=== PATIENT | female | born 1940 | race Caucasian/White ===

== ENCOUNTER → 2016-10-05 | Outpatient (CLI) | payer MEDICARE ==
--- NOTE | 2016-10-05 14:35 | KCIC ---
Bilateral digital screening mammograms with CAD: HISTORY Routine screening. COMPARISON Comparison is made to previous studies dated 10/04/2015 and 09/26/2014. FINDINGS Breast density category B. The skin and nipples show no abnormalities. No abnormal lymph nodes are seen in the axilla. The breast parenchyma shows scattered fibroglandular density. There are small nodules consistent with intramammary lymph nodes in the right breast. There are no other dominant masses, suspicious calcifications or architectural distortions. IMPRESSION No evidence of malignancy. Recommend routine annual mammographic screening. This study was interpreted with the benefit of Computerized Aided Detection (CAD). Mammography is not 100% sensitive in detecting breast cancer. Therefore, a self breast exam and a clinical breast exam are very important. A negative mammogram does not negate a clinically suspicious finding and should not result in a delay in biopsying a clinically suspicious abnormality. BI-RADS category 2: Benign. This patient's information has been entered into a reminder system for the patient to be notified with the results of this examination and a target date for her next mammograms. Electronically signed by: Babs Whitney MD (Oct 05, 2016 14:33:32)
== END | disposition home or self-care (01) ==
LOC: KCIC MAMMO 10:29
PROVIDERS: ATTEND Obstetrics & Gynecology
DX: Z12.31 Encounter for screening mammogram for malignant neoplasm of breast (principal)
CPT/HCPCS: G0202; 77067

== ENCOUNTER → 2016-10-23 | Outpatient (CLI) | payer MEDICARE ==
--- NOTE | 2016-10-23 16:15 | KCIC ---
EXAM: Bone densitometry. HISTORY: Postmenopausal female presents for osteoporosis screening. FINDINGS: BMD: (g/cm2) - AP Spine Total (L1-L4): 0.903 - Total left Hip: 0.740 T-Score: - AP Spine Total (L1-L4): -1.3 - Total left Hip: -1.7 Z-Score: - AP Spine Total (L1-L4): 1.1 - Total left Hip: 0.1 There has been a 0.9 percent decrease in bone mineral density of the left hip and 1.3 percent decrease in bone mineral density of the lumbar spine compared to a prior study dated 10/09/2014. World Health Organization criteria for BMD interpretation classify patients as Normal (T-score at or above -1.0), Osteopenic (T-score between -1.0 and -2.5), or Osteoporotic (T-score at or below -2.5). IMPRESSION: Osteopenia. Electronically signed by: Guerline Santiago (Oct 23, 2016 16:14:16)
== END | disposition home or self-care (01) ==
LOC: KCIC DEXA 15:28
PROVIDERS: ATTEND Obstetrics & Gynecology
DX: Z78.0 Asymptomatic menopausal state (principal); M85.88 Other specified disorders of bone density and structure, other site
CPT/HCPCS: 77080

== ENCOUNTER 2016-10-29 15:03 | Emergency (ER) | payer MEDICARE ==
[~2016-10-29] VITALS: Ht 162.6 cm; Wt 68.0 kg
[2016-10-29 15:25] VITALS: BP 129/62
--- NOTE | 2016-10-29 15:29 | PHYS DOC ---
Adult General Chief Complaint Chief Complaint: MECHANICAL FALL HPI HPI Patient is a 76 year old female who presents with facial trauma. She was walking and tripped on the driveway and fell forward. She states only thing that hurts is her nose. She denies any back pain neck pain, hand, wrist, knee or foot pain. Patient does have blood coming from her right Stanley. Her last tetanus shot was in 2012. She is on aspirin but no other blood thinners. Review of Systems Review of Systems Constitutional: Denies fever or chills [] Eyes: Denies change in visual acuity, redness, or eye pain [] HENT: Denies nasal congestion or sore throat [] Respiratory: Denies cough or shortness of breath [] Cardiovascular: No additional information not addressed in HPI [] GI: Denies abdominal pain, nausea, vomiting, bloody stools or diarrhea [] : Denies dysuria or hematuria [] Musculoskeletal: Denies back pain or joint pain [] Integument: Denies rash or skin lesions [] Neurologic: Denies headache, focal weakness or sensory changes [] Endocrine: Denies polyuria or polydipsia [] Current Medications Current Medications Current Medications Medications (Trade) Dose Ordered Sig/Almita Start Time Stop Time Status Last Admin Dose Admin Oxymetazoline HCl (Afrin) 2 spray 1X ONCE 10/29/16 15:30 10/29/16 15:32 DC 10/29/16 16:15 2 SPRAY Allergies Allergies Allergies Coded Allergies Type Severity Reaction Last Updated Verified ciprofloxacin Allergy Intermediate Rash 10/29/16 Yes Physical Exam Physical Exam Constitutional: Well developed, well nourished, no acute distress, non-toxic appearance. [] HENT: Normocephalic, atraumatic, bilateral external ears normal, oropharynx moist, no oral exudates, patient to see. Nose, swelling of the right naris, no septal hematoma appreciated however is very difficult to evaluate. Eyes: PERRLA, EOMI, conjunctiva normal, no discharge. [] Neck: Normal range of motion, no tenderness, supple, no stridor. [] Cardiovascular:Heart rate regular rhythm, no murmur [] Lungs & Thorax: Bilateral breath sounds clear to auscultation [] Abdomen: Bowel sounds normal, soft, no tenderness, no masses, no pulsatile masses. [] Skin: Warm, dry, no erythema, no rash. [] Back: No tenderness, no CVA tenderness. [] Extremities: No tenderness, no cyanosis, no clubbing, ROM intact, no edema. [] Neurologic: Alert and oriented X 3, normal motor function, normal sensory function, no focal deficits noted. [] Psychologic: Affect normal, judgement normal, mood normal. [] Current Patient Data Vital Signs Vital Signs Date Time Temp Pulse Resp B/P (MAP) Pulse Ox O2 Delivery O2 Flow Rate FiO2 10/29/16 15:25 97.5 86 18 129/62 (84) 96 Room Air 97.5 EKG EKG [] Radiology/Procedures Radiology/Procedures [address] [address] IMAGING REPORT Signed PATIENT: YOLANDE HALL ACCOUNT: [id number] : 1940 LOCATION: ER AGE: 76 SEX: F EXAM STATUS: REG ER ORD. PHYSICIAN: HARPREET WATT MD REASON: trauma PROCEDURE: CT CERVICAL SPINE WO CONTRAST Indication injury,2 pain. 4 axial images of the cervical spine were obtained and reformatted in the coronal and sagittal planes. The lung apices appear clear. A significant soft tissue finding in the neck is not seen. Review of axial images demonstrates some degenerative change. Facet arthropathy is seen at several levels. A fracture is not apparent. Review of the reformatted images in the coronal and sagittal planes confirms spondylitic changes. No acute finding is seen. 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 No acute finding seen PQRS Compliance Statement: One or more of the following individualized dose reduction techniques were utilized for this examination: 1. Automated exposure control 2. Adjustment of the mA and/or kV according to patient size 3. Use of iterative reconstruction technique DICTATED and SIGNED BY: PRINCE TEE MD DATE: 10/29/16 1612 CC: HARPREET WATT MD; CAROLYN CUNHA MD ~ [facility] [address] [place], [place] [id number] IMAGING REPORT Signed PATIENT: YOLANDE HALL ACCOUNT: [id number] : 1940 LOCATION: ER AGE: 76 SEX: F EXAM STATUS: REG ER ORD. PHYSICIAN: HARPREET WATT MD REASON: trauma PROCEDURE: CT HEAD AND MAXILLOFACIAL WO Indication fall. Head and facial injury. The head and maxillofacial structures were evaluated. No prior CT imaging of the head is available. Images of the cervical spine were reformatted in the coronal and sagittal planes. CT head: Findings. The calvarium appears unremarkable. The ventricles and sulci are normal given the patient's age. There is no subdural or epidural hematoma. There is no hemorrhage or mass. An acute finding is not apparent. Maxillofacial CT: Findings. A significant soft tissue finding is not seen. There is fluid in the right maxillary sinus. The mandible appears unremarkable. The zygomatic arches appear normal. The nose and maxillary sinuses appear normal. The medial and lateral ferrell of the orbits appear normal. No facial fracture is seen. IMPRESSION: No facial fracture seen. No acute intracranial finding seen There is some fluid in the right maxillary sinus suggesting possible sinusitis. PQRS Compliance Statement: One or more of the following individualized dose reduction techniques were utilized for this examination: 1. Automated exposure control 2. Adjustment of the mA and/or kV according to patient size 3. Use of iterative reconstruction technique DICTATED and SIGNED BY: PRINCE TEE MD DATE: 10/29/161602 CC: HARPREET WATT MD; CAROLYN CUNHA MD ~ Impressions: Nasal contusion Course & Med Decision Making Course & Med Decision Making Pertinent Labs and Imaging studies reviewed. (See chart for details) CT scans face neck and head did not show any acute fractures or abnormalities. She does have an abrasion on her nose and swelling across the bridge of her nose. She was given Afrin to use she is also instructed to use ice and she can use Aleve 2 tablets every 12 hours she drinks a few extra glasses of water daily she is instructed not to do this morning and 3-4 days in a row. She is instructed to follow-up with primary care physician within a week, return ER for bleeding, increasing pain or other concerns. She can follow-up with Dr. Giraldo in the next 3-4 days. I gave her contact information. She is in stable condition being discharged this time. Dragon Disclaimer Dragon Disclaimer This electronic medical record was generated, in whole or in part, using a voice recognition dictation system. Departure Departure Impression: Primary Impression: Nasal contusion Disposition: 01 HOME, SELF-CARE Condition: STABLE Referrals: CAROLYN CUNHA MD (PCP) Patient Instructions: Facial or Scalp Contusion Additional Instructions: Can follow-up with Dr. Giraldo is an ears nose and throat physician can call her office in follow-up with her in the next 4-5 days. [facility] [address] [facility], [address] [facility] [address] Hearing Center: [phone] [address] [facility], [address] [facility] [address] Hearing Center: [phone] [address] [facility] [address] Fax: Hearing Center: [phone] [place] [address], [address] [place] [address] Hearing Center: [phone] [address] [facility], [address] [facility] [address] Hearing Center: [phone] If you have worsening pain, fevers, bleeding from your nose or other concerns please return back to emergency department. You can take Aleve 2 tablets every 12 hours for next 3-4 days for pain. You can also take Tylenol. Be sure drink a few extra glass of water everyday while taking this higher dose Aleve. HARPREET WATT MD October 29, 2016 15:29
[2016-10-29] MEDS ORDERED: OXYMETAZOLINE 0.05% NASAL SPRAY 30ML BOTTLE. NS ONE (15:30)
--- NOTE | 2016-10-29 16:13 | RAD ---
Indication fall. Head and facial injury. The head and maxillofacial structures were evaluated. No prior CT imaging of the head is available. Images of the cervical spine were reformatted in the coronal and sagittal planes. CT head: Findings. The calvarium appears unremarkable. The ventricles and sulci are normal given the patient's age. There is no subdural or epidural hematoma. There is no hemorrhage or mass. An acute finding is not apparent. Maxillofacial CT: Findings. A significant soft tissue finding is not seen. There is fluid in the right maxillary sinus. The mandible appears unremarkable. The zygomatic arches appear normal. The nose and maxillary sinuses appear normal. The medial and lateral ferrell of the orbits appear normal. No facial fracture is seen. IMPRESSION: No facial fracture seen. No acute intracranial finding seen There is some fluid in the right maxillary sinus suggesting possible sinusitis. PQRS Compliance Statement: One or more of the following individualized dose reduction techniques were utilized for this examination: 1. Automated exposure control 2. Adjustment of the mA and/or kV according to patient size 3. Use of iterative reconstruction technique
--- NOTE | 2016-10-29 16:19 | RAD ---
Indication injury,2 pain. 4 axial images of the cervical spine were obtained and reformatted in the coronal and sagittal planes. The lung apices appear clear. A significant soft tissue finding in the neck is not seen. Review of axial images demonstrates some degenerative change. Facet arthropathy is seen at several levels. A fracture is not apparent. Review of the reformatted images in the coronal and sagittal planes confirms spondylitic changes. No acute finding is seen. 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 No acute finding seen PQRS Compliance Statement: One or more of the following individualized dose reduction techniques were utilized for this examination: 1. Automated exposure control 2. Adjustment of the mA and/or kV according to patient size 3. Use of iterative reconstruction technique
== END 2016-10-29 16:52 | disposition home or self-care (01) ==
LOC: ER 15:03
DX: S00.33XA Contusion of nose, initial encounter (principal); Z88.1 Allergy status to other antibiotic agents; W22.8XXA Striking against or struck by other objects, initial encounter; Y93.89 Activity, other specified; Y92.89 Other specified places as the place of occurrence of the external cause; Y99.8 Other external cause status
CPT/HCPCS: 70450; 70486; 72125; 99284-25

== ENCOUNTER → 2017-10-07 | Outpatient (CLI) | payer MEDICARE | END | disposition home or self-care (01) | LOC: KCIC MAMMO 10:02 | DX: Z12.31 Encounter for screening mammogram for malignant neoplasm of breast (principal) | CPT/HCPCS: 77063; 77067 ==

== ENCOUNTER → 2018-10-11 | Outpatient (CLI) | payer MEDICARE ==
--- NOTE | 2018-10-11 14:12 | KCIC ---
BILATERAL SCREENING MAMMOGRAM, 3-D History: Routine screening. Comparison: Bilateral mammogram 10/07/2017 and dating back to 2014. Technique: MLO and CC digital tomosynthesis (3D) images obtained. Radiologist reviewed these images on dedicated workstation. Findings: Breast Tissue Density B : There are scattered areas of fibroglandular density. Stable intramammary lymph nodes in the posterior upper outer right breast and the posterior upper left breast. There are no dominant masses, suspicious microcalcifications, or architectural distortion. IMPRESSION: No mammographic evidence of malignancy. Recommend routine screening. BI-RADS category 2: Benign findings. The images were reviewed with computer-aided detection. Patient information is entered into reminder system with a target due date for the next screening mammogram. Mammography is the most sensitive method for finding small breast cancers, but it does not detect them all and is not a substitute for careful clinical examination. A negative mammogram does not negate a clinically suspicious finding and should not result in delay in biopsying a clinically suspicious abnormality. "Our facility is accredited by the [employer] Mammography Program." Electronically signed by: Emile Fuentes MD (10/11/2018 2:09 PM) [id number]
== END | disposition home or self-care (01) ==
LOC: KCIC MAMMO 08:23
PROVIDERS: ATTEND Obstetrics & Gynecology
DX: Z12.31 Encounter for screening mammogram for malignant neoplasm of breast (principal); N63.11 Unspecified lump in the right breast, upper outer quadrant; N63.20 Unspecified lump in the left breast, unspecified quadrant
CPT/HCPCS: 77063; 77067

== ENCOUNTER → 2019-12-04 | Outpatient (CLI) | payer MEDICARE ==
--- NOTE | 2019-12-04 18:00 | KCIC ---
Bilateral digital screening mammograms with 3-D tomosynthesis: Reason for examination: Routine screening. Comparison is made to previous studies dated back to 10/04/2015. Bilateral mammograms in CC and oblique projections were obtained with 2-D imaging and 3-D tomosynthesis imaging on a Siemens Inspiration unit and reviewed on the workstation. Interpretation was made with the benefit of CAD. The skin and nipples show no abnormalities. No abnormal axillary lymph nodes are seen. The breast parenchyma shows scattered fatty and fibroglandular density. (Breast density: Category B.) There are intramammary lymph nodes seen on the right. There also continues to be small nodule anterior laterally in the right breast which is stable. There are no new dominant masses, suspicious calcifications or architectural distortion. Impression: No evidence of malignancy. Recommend routine screening. BI-RAD Category 2: Benign. "Our facility is accredited by the [employer] Mammography Program." This patient's information has been entered into a reminder system for the patient to be notified with the results of her examination and a target date for the next mammogram. Electronically signed by: Mulu Whitney MD (12/04/2019 5:57 PM) [email or web address]
== END | disposition home or self-care (01) ==
LOC: KCIC MAMMO 12:38
PROVIDERS: ATTEND Family Medicine
DX: Z12.31 Encounter for screening mammogram for malignant neoplasm of breast (principal); N64.89 Other specified disorders of breast
CPT/HCPCS: 77063; 77067

== ENCOUNTER 2019-12-28 21:52 | Emergency (ER) | payer MEDICARE ==
[~2019-12-28] VITALS: Ht 160 cm; Wt 72.1 kg
[2019-12-29] MEDS ORDERED: NEOMY/BACITR/POLYMYXIN OINT PACKET. TP ONE (01:00)
[2019-12-29] MEDS ORDERED: BUPIVACAINE MPF 0.5% 30 ML VIAL. INJ ONE (01:00)
--- NOTE | 2019-12-29 01:08 | PHYS DOC ---
Past Medical History Past Medical History: High Cholesterol, Hypothyroid Past Surgical History: Hysterectomy, Tonsillectomy, Other Additional Past Surgical Histo: ectopic , breast biopsy, thyroidectomy, D&C, cataract, cosmetic sx Smoking Status: Never Smoker Alcohol Use: Occasionally Drug Use: None General Adult EDM: Chief Complaint: ABRASION HPI: HPI: 79-year-old female past medical history significant for hyperlipidemia and hypothyroidism presents to the ED with complaints of laceration to her right rosenberg after she fell off of 2 steps ("gardening wall") into plants and mulch. Was attempting to get a family members' attention at a [employer]. Does report h itting the mulch with her face, no LOC. Patient reports this was a complete accident when she lost her footing. Tetanus was updated in 2012. Is allergic to ciprofloxacin. Review of systems: No associated fever, chills, dizziness, cough, sore throat, nausea, vomiting, headache, neck stiffness/midline neck pain, chest pain or pressure, hemoptysis, leg swelling, rash, deformity, blurry vision, facial bone ttp, neurologic deficits. Heart Score: Risk Scores: NEXUS criteria negative Current Medications: Current Medications Medications (Trade) Dose Ordered Sig/Almita Start Time Stop Time Status Last Admin Dose Admin Bupivacaine HCl (Sensorcaine Mpf 0.5%) 20 ml 1X ONCE 12/29/19 01:00 12/29/19 01:01 DC 12/29/19 00:19 20 ML Neomycin/ Polymyxin/ Bacitracin (Triple Antibiotic Ointment) 1 pkt 1X ONCE 12/29/19 01:00 12/29/19 01:01 DC 12/29/19 01:00 1 PKT Allergies: Allergies: Allergies Coded Allergies Type Severity Reaction Last Updated Verified ciprofloxacin Allergy Intermediate Rash 10/29/16 Yes Physical Exam: PE: Constitutional: Well developed-looks much younger than 79yoa, well nourished, no acute distress, non-toxic appearance. [] HENT: superficial abrasions over left upper forehead, left cheek, no jaw pain or malalignment, no septal hematoma, (dirt on face), bilateral external ears normal, oropharynx moist, no oral exudates, nose normal. [] Eyes: PERRLA, EOMI, conjunctiva normal, no discharge. [] Neck: Normal range of motion, no tenderness, supple, no stridor. [] Cardiovascular:Heart rate regular rhythm, no murmur [] Lungs & Thorax: Bilateral breath sounds clear to auscultation [] Abdomen: Bowel sounds normal, soft, no tenderness, no masses, no pulsatile masses. [] Skin: Warm, dry, no erythema, no rash. [] Back: No tenderness, no CVA tenderness. [] Extremities: No tenderness, no cyanosis, no clubbing, ROM intact, no edema. [] 5cm upside-down V-shaped laceration/skin flap over mid right chin, white fascia exposed underneath Neurologic: Alert and oriented X 3, normal motor function, normal sensory function, no focal deficits noted. [] Psychologic: Affect normal, judgement normal, mood normal. [] Current Patient Data: Vital Signs: Vital Signs Date Time Temp Pulse Resp B/P (MAP) Pulse Ox O2 Delivery O2 Flow Rate FiO2 12/28/19 22:27 98.7 88 14 98 Room Air 98.7 EKG: EKG: [] Radiology/Procedures: Radiology/Procedures: Indication: right anterior rosenberg Procedure: The patient was placed in the appropriate position and anesthesia around the right anterior rosenberg with 0.5% bupivacaine. The area was then copiously irrigated with saline. The laceration was closed with 4-0 Prolene, total of 7 sutures. The wound area was then dressed with triple antibiotic ointment and sterile dressings. Total repaired wound length: 5cm. The patient tolerated the procedure . Complications: Wound flap with some dark blue skin coloration, will likely off although was closed to prevent infection.[] Impression: Accidental fall with facial abrasions and right rosenberg laceration status post repair. Wound care instructions given. Life-threatening processes considered including intracranial hemorrhage versus unstable cervical spine fracture, low suspicion given history and physical exam. Patient on no anticoagulants. Is clinically sober with medical decision-making capacity. Strict ED return precautions given for headache, neck pain, neurologic deficits or infection. Encourage PMD follow-up. All patient's questions were answered and she was stable at time of discharge. Course & Med Decision Making: Course & Med Decision Making Pertinent Labs and Imaging studies reviewed. (See chart for details) [] Dragon Disclaimer: Dragon Disclaimer: This electronic medical record was generated, in whole or in part, using a voice recognition dictation system. Departure Departure Impression: Primary Impression: Laceration of right lower extremity Additional Impression: Abrasion of face Disposition: 01 HOME, SELF-CARE Condition: STABLE Referrals: CAROLYN CUNHA MD (PCP) Patient Instructions: Laceration Care, Adult Additional Instructions: EMERGENCY DEPARTMENT GENERAL DISCHARGE INSTRUCTIONS Thank you for coming to [facility] Emergency Department (ED) today and trusting us with you care. We trust that you had a positivie experience in our Emergency Department. If you wish to speak to the department management, you may call the sirector at [phone]. YOUR FOLLOW UP INSTRUCTIONS ARE FOLLOWS: 1. Do you have a private Doctor? If you do not have a private doctir, please ask for a resource list of physicians or clinics that may be able to assist you with follow up care. 2. The Emergency Physicain has interpreted your x-rays. The X-Ray specialist will also review them. If there is a change in the findingd, you will be notified in 48 hours when at all possible. 3. A lab test or culture has been done, your results will be reviewed and you will be notified if you need a change in treatment. ADDITIONAL INSTRUCTIONS AND INFORMATION: 1. Your care today has been supervised by a physician who is specially trained in emergency care. Many problems require more than one evaluation for a complete diagnosis and treatment. We recommend that you schedule your follow up appointment as recommended to ensure complete treatment of you illness or injury. If you are unable to obtain follow up care and continue to have a problem, or if your consition worsens, we recommend that you return to the ED. 2. We are not able to safelymdetermine your condition over the phone nor are we able to give sound medical advice over the phone. For these safety reasons, if you call for medical advice we will ask you to come to the ED for further evaluation. 3. If you have any questions regarding these discharge instructions please call the ED at [phone]. SAFETY INFORMATION: In the interest of safety, wellness, and injury prevention; we encourage you to wear your sealbelt, if you smoke; quite smoking, and we encourage family to use a protective helmet for bicycling and other sporting events that present an increased risk for head injusry. IF YOUR SYMPTOMS WORSEN OR NEW SYMPTOMS DEVELOP, OR YOU HAVE CONCERNS ABOUT YOUR CONDITION; OR IF YOUR CONDITION WORSENS WHILE YOU ARE WAITING FOR YOUR FOLLOW UP APPOINTMENT; EITHER CONTACT YOUR PRIMARY CARE DOCTOR, THE PHYSICIAN WHOSE NAME AND NUMBER YOU WERE GIVEN, OR RETURN TO THE ED IMMEDIATELY. Justicifation of Admission Dx: Justifications for Admission: Justification of Admission Dx: N/A SURAJ TAYLOR DO Dec 29, 2019 01:08
== END 2019-12-29 01:15 | disposition home or self-care (01) ==
LOC: ER 21:52
DX: S81.811A Laceration without foreign body, right lower leg, initial encounter (principal); E78.00 Pure hypercholesterolemia, unspecified; E03.9 Hypothyroidism, unspecified; Z88.1 Allergy status to other antibiotic agents; W10.8XXA Fall (on) (from) other stairs and steps, initial encounter; Y93.89 Activity, other specified; Y92.89 Other specified places as the place of occurrence of the external cause; Y99.8 Other external cause status
CPT/HCPCS: 12002; 99282; J3490

== ENCOUNTER → 2020-12-03 | Outpatient (CLI) | payer MEDICARE ==
--- NOTE | 2020-12-03 15:27 | KCIC ---
Bilateral digital screening mammograms with 3-D tomosynthesis: Reason for examination: Routine screening. Comparison is made to previous studies dated back to 09/26/2014. Bilateral mammograms in CC and oblique projections were obtained with 2-D imaging and 3-D tomosynthes is imaging on a Siemens Inspiration unit and reviewed on the workstation. Interpretation was made wit h the benefit of CAD. The skin and nipples show no abnormalities. No abnormal axillary lymph nodes are seen. The breast par enchyma shows scattered fatty and fibroglandular density. (Breast density: Category B.) There appears to be new nodular asymmetry at the 11:30 B position of the right breast approximately 4 cm posterior to the nipple measuring approximately 1 cm in greatest dimension. There are no associated calcificat ions. There also is a small nodular density at approximately the 8:00 B position of the left breast 4 cm from the nipple measuring 4.3 mm in size. Further evaluation with ultrasound is recommended. Ther e are no other dominant masses, suspicious calcifications or architectural distortion. Impression: 1 cm nodular density in the right breast at the 11:30 B position 4 cm posterior to the nipple. 4.3 mm nodular density at approximately the 8:30 B position of the left breast 4 cm from the nipple. Recommend further evaluation with bilateral breast ultrasound. BI-RADS Category 0: Incomplete. Needs additional imaging evaluation. "Our facility is accredited by the [employer] Mammography Program." This patient's information has been entered into a reminder system for the patient to be notified wit h the results of her examination and a target date for the next mammogram. Electronically signed by: Mulu Whitney MD (12/03/2020 3:24 PM) [email or web address]
== END ==
LOC: KCIC MAMMO 14:04
PROVIDERS: ATTEND Family Medicine
DX: Z12.31 Encounter for screening mammogram for malignant neoplasm of breast (principal); N64.89 Other specified disorders of breast
CPT/HCPCS: 77063; 77067

== ENCOUNTER → 2020-12-24 | Outpatient (CLI) | payer MEDICARE ==
--- NOTE | 2020-12-24 10:24 | KCIC ---
Bilateral breast ultrasound: Reason for examination: Nodular densities on screening mammogram. Comparison is made to mammographic exam dated 12/03/2020. Ultrasound examination of the breasts and axilla was performed bilaterally. In the right breast at the 11:30 position 6 cm from the nipple, there is a small 4 mm circumscribed n odule with an echogenic center consistent with an intramammary lymph node. At the 11:30 position 3.5 cm from the nipple, there is a 9.3 x 8.8 mm hypoechoic circumscribed lesion in parallel orientation w hich no abnormal vascularity. The appearance suggests a small fibroadenoma. No abnormal appearing lym ph nodes are seen in the axilla. In the left breast at the 9:30 position 3 cm from the nipple, there is a small 4.9 mm hypoechoic fibr ocystic type lesion present with no abnormal vascularity. No cystic or solid lesions are seen. No abn ormal appearing lymph nodes are seen axilla. 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 Fibrocystic type lesion measuring 4.9 mm in size at the 9:30 position of the left breast 3 cm from th e nipple. Recommend 6 month follow-up with bilateral breast ultrasound. BI-RADS Category 3: Probably Benign. "Our facility is accredited by the [employer] Mammography Program." This patient's information has been entered into a reminder system for the patient to be notified wit h the results of her examination and a target date for the next mammogram. Electronically signed by: Mulu Whitney MD (12/24/2020 10:21 AM) [id number]
== END ==
LOC: KCIC US 08:51
PROVIDERS: ATTEND Family Medicine
DX: N63.11 Unspecified lump in the right breast, upper outer quadrant (principal); R92.8 Other abnormal and inconclusive findings on diagnostic imaging of breast
CPT/HCPCS: 76641

== ENCOUNTER → 2021-02-21 | Outpatient (CLI) | payer MEDICARE ==
--- NOTE | 2021-02-21 11:43 | KCIC ---
EXAM: DUAL ENERGY X-RAY ABSORPTIOMETRY (DEXA). HISTORY: Postmenopausal screening. FINDINGS: The lowest measured T-score is -1.4 in the hip, based on a bone mineral density of 0.767 g/ cm^2. Refer to the worksheets for full detail. There has been a 3.6 percent increase in density of the left hip and 15.3 percent increase in density lumbar spine compared to a study performed 10/23/2016. IMPRESSION: 1. Low bone mass. Bone mineral density yields a T-score between -1.0 and -2.5. Fracture risk is incre ased. 2. FRAX report: Not calculated. METHODOLOGY: Dual energy x-ray absorptiometry was performed to measure bone mineral density. The foll owing analysis is based on the 2019 Official Positions of the International Society for Clinical Dens itometry: Measurements of the hips and the average of L1-L4 are preferred. When the spine and/or hip cannot be feasibly measured or interpreted, or in the setting of hyperparathyroidism, distal radial bone minera l density may be measured. The lumbar spine T-score is based on the average bone mineral density of L1-L4. In the setting of art ifact or anatomic abnormality, some lumbar levels may be excluded, and the remaining levels used for calculation. A single lumbar level is not used for diagnosis, and if only a single level is available for assessment, another anatomic site will be used to assign a diagnosis. The hip T-score is based on the bone mineral density measurement of the femoral neck or total proxima l femur of either side, whichever is lowest. Bilateral mean values are not used for diagnosis. The forearm T-score is derived from 33% of the distal radius of the nondominant forearm. Electronically signed by: Guerline Santiago MD (02/21/2021 11:41 AM) [id number]
== END ==
LOC: KCIC DEXA 11:17
PROVIDERS: ATTEND Family Medicine
DX: M85.89 Other specified disorders of bone density and structure, multiple sites (principal)
CPT/HCPCS: 77080

== ENCOUNTER → 2021-05-09 | Outpatient (CLI) | payer MEDICARE ==
--- NOTE | 2021-05-09 15:53 | RAD ---
INDICATION: 80 year-old female presents for further evaluation of the abnormality seen on prior mammo gram and breast ultrasound. TECHNIQUE: Targeted high resolution sonography of the regions of clinical concern was performed in michele th breasts. COMPARISON: None ULTRASOUND FINDINGS: 11:30 position, 6 cm the nipple a 0.5 x 0.4 x 0.3 cm hypoechoic well-circumscribed nodule is seen wit h internal echogenicity, stable. 11:30 position, 3.5 cm from the nipple a 0.5 x 0.2 x 0.5 cm oval hypoechoic circumscribed nodule is s een, previously 0.9 x 0.9 cm. At the 9:30 position, 3 cm from the nipple a 0.3 x 0.2 x 0.6 cm hypoechoic nodule previously measured 0.5 cm. A few prominent left axillary lymph nodes are seen on the patient describes history of recent vaccine administration left upper extremity. IMPRESSION: Probably benign finding. RECOMMENDATION: Recommend 6 month ultrasound follow up. At that time the patient will be due for mamm ographic evaluation of both breasts as well. BI-RADS 3: Probably Benign Electronically signed by: Niko Monique MD (05/09/2021 3:50 PM) [id number]
== END ==
LOC: US 10:20
PROVIDERS: ATTEND Family Medicine
DX: Z09 Encounter for follow-up examination after completed treatment for conditions other than malignant neoplasm (principal); N63.11 Unspecified lump in the right breast, upper outer quadrant; N63.22 Unspecified lump in the left breast, upper inner quadrant; R92.8 Other abnormal and inconclusive findings on diagnostic imaging of breast
CPT/HCPCS: 76641-50